=== PATIENT | female | born 1965 ===

== ENCOUNTER 2020-11-04 18:49 | Emergency (ER) | payer MEDICAID ==
[~2020-11-04] VITALS: Ht 175.3 cm; Wt 65.8 kg
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
--- NOTE | 2020-11-04 20:00 | NUR ---
Pt provided urine sample, sent to lab.
--- NOTE | 2020-11-04 20:05 | NUR ---
Pt out of ER for CT.
[2020-11-04 20:07] LABS: *URINE HCG, QUAL NEGATIVE (NEGATIVE)
--- NOTE | 2020-11-04 20:20 | NUR ---
Pt back to ER from CT.
--- NOTE | 2020-11-04 21:20 | NUR ---
Received call from [employer] officer Javier, stated that [employer] is finding retirement for the patient.
--- NOTE | 2020-11-04 22:19 | NUR ---
Received call back from [employer] officer Javier, unable to find nursing home for patient, requested to have patient stay in the hospital until social work administrator arrives in morning.
--- NOTE | 2020-11-04 22:45 | NUR ---
Provided food and water to patient per pt request.
--- NOTE | 2020-11-04 23:00 | NUR ---
Pt in bed sleeping, no acute signs of distress.
--- NOTE | 2020-11-05 04:31 | NUR ---
Pt sleeping in bed, no acute signs of distress.
--- NOTE | 2020-11-05 07:45 | NUR ---
left a message for Kuldeep social media job titles.
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
--- NOTE | 2020-11-05 13:09 | NUR ---
Patient given written and verbal discharge instructions. Patient verbalizes understanding of instructions. Patient is ambulatory with steady gait. [facility] social contact worker. Patient given list of available shelters in surrounding area. Addendum: 11/05/20 at 1321 by STEPHY pt remained calm and cofortable the whole er stay. pt had bf and lunch with good apetite. pt very appreciative of the care she recieved here.
[2020-11-05 13:19] VITALS: BP 111/77
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
== END 2020-11-05 13:20 | disposition home or self-care (01) ==
LOC: ER 18:49
DX: S00.31XA Abrasion of nose, initial encounter (principal); S00.33XA Contusion of nose, initial encounter; Y04.2XXA Assault by strike against or bumped into by another person, initial encounter; Y92.89 Other specified places as the place of occurrence of the external cause; Z59.0 Homelessness; Z20.822 Contact with and (suspected) exposure to COVID-19
CPT/HCPCS: 70486; 84703; A4663